=== PATIENT | male | born 1975 | race Caucasian/White ===

== ENCOUNTER → 2023-06-07 | Outpatient (CLI) | payer MEDICAID ==
--- NOTE | 2023-06-07 12:26 | XR ---
EXAMINATION TYPE: XR ankle complete RT DATE OF EXAM: 06/07/2023 COMPARISON: NONE HISTORY: 48-year-old male fall, twisting injury 6 days ago, bruising and pain TECHNIQUE: 3 views FINDINGS: There is a mildly comminuted oblique fracture distal fibular shaft with 4 mm of lateral displacement. Minimally displaced transverse fracture through the base of the medial malleolus. Talar dome remains intact. Circumferential soft tissue swelling. Tiny plantar heel spur. IMPRESSION: Unstable bimalleolar ankle fractures. 4 mm of displacement of the oblique distal fibular fracture.
== END | disposition home or self-care (01) ==
LOC: RADXRMAIN 11:19
PROVIDERS: ATTEND Radiology Radiation Oncology
DX: S82.841A Displaced bimalleolar fracture of right lower leg, initial encounter for closed fracture (principal); X50.1XXA Overexertion from prolonged static or awkward postures, initial encounter

== ENCOUNTER → 2023-06-10 | Outpatient (CLI) | payer MEDICAID ==
[2023-06-10 15:00] LABS: Basophils # (A) 0.05 X 10*3/uL (0.00-0.10); Basophils % (A) 0.8 %; Eosinophils % (A) 1.6 %; HCT 41.8 % (39.6-50.0); Lymphocytes # (A) 1.35 X 10*3/uL (0.90-5.00); Lymphocytes % (A) 21.2 %; MCH 30.1 pg (27.0-32.0); MCHC 33.5 g/dL (32.0-37.0); MCV 89.9 FL (80.0-97.0); Mean Platelet Volume 9.5 FL (9.5-12.2); Monocytes # (A) 0.47 X 10*3/uL (0.20-1.00); Monocytes % (A) 7.4 %; NRBC Per 100 WBC 0 X 10*3/uL (0.00-0.01); Neutrophils # (A) 4.37 X 10*3/uL (1.80-7.70); Neutrophils % (A) 68.7 %; Platelet Count 314 X 10*3/uL (140-440); RBC 4.65 X 10*6/uL (4.40-5.60); WBC 6.36 X 10*3/uL (4.50-10.00)
[2023-06-10 15:06] LABS: Anion Gap 12.8 mmol/L (4.00-12.00); Carbon Dioxide 25.2 mmol/L (21.6-31.8)
== END | disposition home or self-care (01) ==
LOC: LABPAT 09:57
PROVIDERS: ATTEND Orthopaedic Surgery
DX: Z01.812 Encounter for preprocedural laboratory examination (principal); S82.841A Displaced bimalleolar fracture of right lower leg, initial encounter for closed fracture; Y99.9 Unspecified external cause status
CPT/HCPCS: 80051; 85025

== ENCOUNTER 2023-06-12 10:39 | Day surgery (SDC) | payer MEDICAID ==
[2023-06-10 10:10] VITALS: BMI 26.4
--- NOTE | 2023-06-12 08:01 | P.HPOR ---
History of Present Illness H&P Date: 06/12/23 Chief Complaint: right ankle pain Patient is a 48-year-old male who presents with right ankle pain after an injury on 06/02/2023. He was leaving a football game when he slipped on the ice twisting his ankle. He been weightbearing on that after the injury until visiting the emergency room on 06/07/2023. He denies previous injury. Review of Systems As per HPI Past Medical History Additional Past Medical History / Comment(s): SEASONAL ALLERGIES. FX RT ANKLE 06/02/23 History of Any Multi-Drug Resistant Organisms: None Reported Past Surgical History: Tonsillectomy Additional Past Surgical History / Comment(s): TUBES IN EARS CHILD Past Anesthesia/Blood Transfusion Reactions: No Reported Reaction Smoking Status: Never smoker - Past Family History Mother Family Medical History: No Reported History Medications and Allergies Home Medications Medication Instructions Recorded Confirmed Type Acetaminophen [Tylenol Extra 1,000 mg PO Q8H PRN 06/10/23 06/10/23 History Strength] Ibuprofen [Motrin Ib] 800 mg PO Q8H PRN 06/10/23 06/10/23 History Loratadine [Claritin] 10 mg PO DAILY 06/10/23 06/10/23 History Allergies Allergy/AdvReac Type Severity Reaction Status Date / Time meperidine [From Demerol] AdvReac Nausea & Verified 06/10/23 09:36 Vomiting Physical Examination - Ankle & Foot right Ankle appearance: swelling Foot swelling: other (Moderate medial and lateral swelling, skin intact) Tenderness with palpation: medial ankle, lateral ankle Ankle pain worse with weight bearing: Yes Tests: achilles rupture tests: negative, DVT tests: negative Results The shunt is a well-developed well-nourished male approximate 6 foot tall, 195 pounds of mesomorphic habitus. HEENT exam is nonfocal, neck is supple. He has painless passive motion of his right hip and knee. He has moderate medial lateral swelling about the right ankle. He is tender about the medial and lateral malleolar. No mid or forefoot tenderness is noted. Ankle motion is limited secondary to pain. His distal neurovascular exam appears intact in the right lower extremity. - Diagnostic results Ankle/Foot x-ray: image reviewed (3 views of the right ankle were reviewed and show evidence of a bimalleolar fracture with 2-3 mm lateral displacement. The medial clear space appears to be maintained. ) Assessment and Plan Assessment: Displaced right bimalleolar ankle fracture Plan: The patient at length regarding his condition along treatment options at this point I recommend proceeding with surgical intervention. We'll plan to proceed with open reduction and internal fixation of his right bimalleolar ankle fracture. Risks and benefits were discussed at length in layman's terms. Potentially we will perform that as an outpatient procedure.
[~2023-06-12 10:39] MED LIST: LACTATED RINGERS 1,000 ML IV SCH; ONDANSETRON 4 MG/2 ML VIAL IVP ONE; fentaNYL (PF) 50 MCG/ML 2 ML AMP IV PRN
[2023-06-12 11:35] VITALS: TEMP 97.5
[2023-06-12] MEDS ORDERED: ONDANSETRON 4 MG/2 ML VIAL IVP ONE (11:46)
[2023-06-12] MEDS ORDERED: MIDAZOLAM 2 MG/2 ML VIAL IVP ONE (12:23)
[2023-06-12] MEDS ORDERED: ROPIVACAINE 5 MG/ML 30 ML VIAL ONE (12:35)
[2023-06-12] MEDS ORDERED: HYDROmorphone (PF) 1 MG/ML ONE (12:35)
[2023-06-12] MEDS ORDERED: fentaNYL (PF) 50 MCG/ML 2 ML AMP ONE (12:35)
[2023-06-12] MEDS ORDERED: DEXAMETHASONE SOD PHOSPHATE 4 MG/ML 1 ML VIAL ONE (12:35)
[2023-06-12] MEDS ORDERED: LIDOCAINE 1% INJ 10MG/ML (20 ML MDV) ONE (12:35)
[2023-06-12] MEDS ORDERED: PROPOFOL 10 MG/ML 20 ML VIAL IV ONE (12:35)
[2023-06-12] MEDS ORDERED: MIDAZOLAM 2 MG/2 ML VIAL ONE (12:35)
[2023-06-12] MEDS ORDERED: ceFAZolin 1,000 MG in SODIUM CHLORIDE 0.9% 1,000 ML IRRIGATION ONE (12:45)
[2023-06-12 12:52] VITALS: RESP 16
--- NOTE | 2023-06-12 14:33 | P.OP ---
Date of Procedure: 06/12/23 Preoperative Diagnosis: Displaced right bimalleolar ankle fractureDisplaced right bimalleolar ankle fracture Postoperative Diagnosis: Same Procedure(s) Performed: Open reduction and internal fixation right bimalleolar ankle fractureOpen reduction and internal fixation right bimalleolar ankle fracture Implants: Tyler 7 hole one third tubular plate, 4.0 mm x 40 mm partially-threaded cancellous screws x 2 Anesthesia: YUNIER, regional Surgeon: oIn Man Estimated Blood Loss (ml): 10 Pathology: none sent Condition: stable Disposition: PACU Indications for Procedure: The patient is a 48-year-old male who presents with right ankle pain after previous fall/twisting injury. Clinically he was noted to have a closed displaced bimalleolar right ankle fracture. A discussion of the risks and benefits of operative intervention versus conservative measures was made with the patient. He opted to proceed with surgery. Operative risks include infection, neurovascular injury, development of blood clots, possible development of malunion/nonunion and need for subsequent procedures was discussed. Informed consent was obtained. Operative Findings: As below Description of Procedure: The patient was brought to the operating room, and after induction of general anesthesia the right lower extremity was prepped and draped in normal fashion. The tourniquet was inflated to 270 mmHg. A 10 cm incision was then made along the posterior lateral subcutaneous border of the fibula. Skin was incised sharply. Subcutaneous tissues were divided bluntly. Electrocautery was used for hemostasis. The fracture site was identified and cleaned of clot debris. This was provisionally reduced with a reduction clamp. There was posterior comminution. A 7 hole one third tubular plate was placed in neutralization fashion along the lateral distal fibula. This was done with the aid of fluoroscopy. I felt I was able to adequately reduce the fracture and restore fibular length. Attention was then paid towards the medial malleolar fracture. A 4 cm incision was then made along the medial aspect of the ankle over the medial malleolus. Skin was incised sharply. Subcutaneous tissues were divided bluntly. The fracture site was identified and cleaned of clot and debris. This was then provisionally reduced with a K wire. 2 guidepins were placed in a parallel fashion with the aid of fluoroscopy. The cannulated drill was used over these. 4.0 x 40 mm cancellous screws x 2 were inserted over the guidewires with good purchase. I felt that adequate catholic of the medial malleolar anatomy along with good purchase. Final fluoroscopic views including AP lateral and mortise view showed adequate reduction of the medial and lateral malleolar fractures and catholic of the ankle mortise. The wounds were irrigated with normal saline. The subcutaneous tissues were reapproximated interrupted 2-0 Vicryl suture. The skin was reapproximated with 3-0 subcuticular Prolene suture. Steri-Strips were applied. A sterile dressing was applied in addition to a bulky Sommer splint. The tourniquet was deflated approximately 70 minutes total tourniquet time. The patient was awoken from general anesthesia and transferred recovery room in good condition. Blood loss was estimated 10 cc. No complications were incurred. Sponge and needle counts were correct at the end of the case.
--- NOTE | 2023-06-12 14:51 | FL ---
EXAMINATION TYPE: FL guidance operating room, XR ankle limited RT Intraoperative/procedural fluorosco pic services were provided. Total fluoroscopy time is 31 seconds with a total of 3 submitted images t o PACS. Please see the operative/procedural note for further details. DAP: [id number]
[2023-06-12 16:11] VITALS: BP 133/76; PULSE 75
--- NOTE | 2023-06-13 10:34 | P.ANPRN ---
Procedure Note - Anesthesia - Nerve Block Performed Right Popliteal Single Time Out Performed: Yes Date of Procedure: 06/12/23 Procedure Start Time: Procedure Stop Time: Location of Patient: PreOp Indication: Acute Post-Operative Pain, Requested by Surgeon Sedation Type: Sedate with meaningful contact maintained Preparation: Sterile Prep Position: Left Lateral Needle Types: Pajunk Needle Gauge: 21 Ultrasound used to visualize needle placement: Yes Ultrasound used to observe medication spread: Yes Blood Aspirated: No Pain Paresthesia on Injection Noted: No Resistance on Injection: Normal Image Stored and Saved: Yes Events: Uneventful and Well Tolerated (Ropivacaine 0.5% 20 cc dexamethasone 4 mg)
--- NOTE | 2023-06-13 10:36 | P.ANPRN ---
Procedure Note - Anesthesia - Nerve Block Performed Right Adductor Canal Single Time Out Performed: Yes Date of Procedure: 06/12/23 Procedure Start Time: : Procedure Stop Time: Location of Patient: PreOp Indication: Acute Post-Operative Pain, Requested by Surgeon Sedation Type: Sedate with meaningful contact maintained Preparation: Sterile Prep Position: Supine Needle Types: Pajunk Needle Gauge: 21 Ultrasound used to visualize needle placement: Yes Ultrasound used to observe medication spread: Yes Blood Aspirated: No Pain Paresthesia on Injection Noted: No Resistance on Injection: Normal Image Stored and Saved: Yes Events: Uneventful and Well Tolerated (Bupivacaine 0.5% 20 cc close dexamethasone 4 mg)
== END 2023-06-12 14:35 | disposition home or self-care (01) ==
LOC: OR 10:39
PROVIDERS: ATTEND Orthopaedic Surgery
DX: S82.841A Displaced bimalleolar fracture of right lower leg, initial encounter for closed fracture (principal); Z88.5 Allergy status to narcotic agent; W00.0XXA Fall on same level due to ice and snow, initial encounter
CPT/HCPCS: 64447; 64445; 73600; 27814; C1713; J2250; J1100; J0690 ×2; J2405; J2001; J3010; J1170; J2795; J2704